=== PATIENT | female | born 1955 | race African-American/Black ===

== ENCOUNTER 2017-04-16 03:22 | Emergency (ER) | payer OTHER ==
[~2017-04-16] VITALS: Ht 175.3 cm; Wt 131.5 kg
[2017-04-16 03:59] VITALS: BP 162/90
[2017-04-16 07:41] LABS: Urine WBC None Seen /hpf (0 - 5)
[2017-04-16 08:01] LABS: Urine Bacteria NONE SEEN /hpf (None Seen); Urine Blood TRACE /uL (Negative); Urine Hyaline Cast FEW /lpf (0 - 2); Urine Mucus FEW (None Seen); Urine Specific Gravity 1.025 (1.001-1.035)
== END 2017-04-16 07:42 | disposition left against medical advice (07) ==
LOC: ER 03:24
DX: R11.2 Nausea with vomiting, unspecified (principal); R10.9 Unspecified abdominal pain; Z53.21 Procedure and treatment not carried out due to patient leaving prior to being seen by health care provider
CPT/HCPCS: 81001; 93005

== ENCOUNTER 2023-08-19 11:44 | Inpatient (IN) | payer MEDICARE, MEDICAID ==
[~2023-08-19] VITALS: Ht 157.5 cm; Wt 125.4 kg
[2023-08-19] VITALS (41 sets, daily range): BP systolic 80–132; BP diastolic 38–84; PULSE 88–105; RESP 15–23; TEMP 63.1–100.9; O2SAT 93–100
[~2023-08-19 11:44] MED LIST: LEVO750T40 PO
[2023-08-19] MEDS: EPINEPHrine HCL 1 MG/10 ML SYRG ONE (11:52)
[2023-08-19] MEDS: EPINEPHrine HCL 250 ML IV ONE (11:54)
[2023-08-19] MEDS: NOREPINEPHRINE 8 MG/250ML KIT 250 ML IV ONE (12:08)
[2023-08-19] MEDS: EPINEPHrine HCL 250 ML IV SCH (12:15)
[2023-08-19 12:33] LABS: Chloride 89 mmol/L (98-107); Potassium 4.3 mmol/L (3.5-5.1); Sodium 137 mmol/L (136-145)
[2023-08-19 12:34] LABS: Anion Gap 15 (5-15); Calcium 9.3 mg/dL (8.7-10.4); Carbon Dioxide 33 mmol/L (20-30)
[2023-08-19 12:35] LABS: White Blood Cell 9.7 10^3/uL (4.4-10.8)
[2023-08-19 12:37] LABS: Hematocrit 34.7 % (36.0-46.0); Hemoglobin 10.9 g/dL (12.2-16.2); Mean Corpuscular Hemoglobin 29.6 pg (28.0-32.0); Mean Corpuscular Hgb Conc. 31.3 g/dL (32.0-36.0); Mean Corpuscular Volume 94.5 fL (80.0-100.0); Red Blood Cells 3.67 10^6/uL (4.0-5.20); Red Cell Distribution Width 15.4 % (11.8-14.3)
[2023-08-19 12:39] LABS: BUN/Creatinine Ratio 45.9 (10.0-20.0); Blood Urea Nitrogen 45 mg/dL (9-23); Glucose 400 mg/dL (74-106)
[2023-08-19 12:41] LABS: Basophils % (manual) 0 (0.0-2.0); Blast Cells 0; Eosinophils % (manual) 0 (0-7); Metamyelocytes % 0; Myelocytes % 0; Promyelocytes % 0; Reactive Lymphocytes 0
[2023-08-19] MEDS: NOREPINEPHRINE 8 MG/250ML KIT 250 ML IV SCH (12:52)
[2023-08-19] MEDS: PIPERACILLIN-TAZOB 3.375GM 100 ML IV ONE (12:58)
[2023-08-19] MEDS: FUROSEMIDE 20 MG/2 ML VIAL IV ONE (12:59)
[2023-08-19 13:10] LABS: Band Neutrophils % (manual) 4; Lymphocytes % (manual) 21 (10.0-50.0); Monocytes % (manual) 5 (0-12)
[2023-08-19 13:11] LABS: Anisocytosis Slight; Hypochromia Slight; Platelet Estimate Adequate
[2023-08-19 14:10] LABS: Base Excess 10.9 mmol/L (-2.0-2.0)
[2023-08-19] MEDS: AZITHROMYCIN 500MG/ 250ML 250 ML IV ONE (14:38)
[2023-08-19] MEDS ORDERED: ONDANSETRON HCL 4 MG/2 ML VIAL IV PRN (15:00)
[2023-08-19] MEDS ORDERED: HYDROcodone-ACET 5/325MG TAB PO PRN (15:00)
[2023-08-19] MEDS ORDERED: DOCUSATE SOD 100 MG CAP PO PRN (15:00)
[2023-08-19] MEDS: MIDAZOLAM DRIP 50 mg/50mL 50 ML IV ONE (15:07)
[2023-08-19] MEDS: MIDAZOLAM DRIP 50 mg/50mL 50 ML IV SCH (15:09)
[2023-08-19 15:54] LABS: Urine Bacteria FEW /hpf (None Seen); Urine Blood 2+ /uL (Negative); Urine Budding Yeast OCCASIONAL /hpf (None Seen); Urine Clarity Turbid (Clear); Urine Color Yellow (Yellow); Urine Protein, UAD 2+ (Negative); Urine Specific Gravity 1.014 (1.001-1.035); Urine Urobilinogen Normal (Negative); Urine WBC 25 /hpf (0 - 5); Urine pH 5.5 (5.0-9.0)
[2023-08-19] MEDS ORDERED: VANCOMYCIN PER PHARMACY 0 MG IV SCH (16:15)
[2023-08-19] MEDS: VANCOMYCIN 1GM/200ML 200 ML IV ONE (18:09)
[2023-08-19] MEDS: ENOXAPARIN SOD 120 MG/0.8 ML SYRINGE SC SCH (18:42)
[2023-08-19] MEDS ORDERED: AMLO1TAB22 PO (19:09)
[2023-08-19] MEDS ORDERED: POTA-215 PO (19:09)
[2023-08-19] MEDS ORDERED: GLIP10TA9 PO (19:09)
[2023-08-19] MEDS ORDERED: AMIO200T33 PO (19:09)
[2023-08-19] MEDS ORDERED: METO25TA5 PO (19:09)
[2023-08-19] MEDS ORDERED: HYDR25TA4 PO (19:09)
[2023-08-19] MEDS ORDERED: INSU1INJ19 SC (19:09)
[2023-08-19] MEDS: ACETAMINOPHEN 325 MG TAB PO PRN (21:49)
[2023-08-19] MEDS: PIPERACILLIN-TAZOB 3.375GM 100 ML IV SCH (21:49)
[2023-08-19] MEDS: SODIUM CHLOR 0.9% PF (SALINE LOCK) 10ML VIAL/SYR IV SCH (22:09)
[2023-08-20] VITALS (94 sets, daily range): BP systolic 86–132; BP diastolic 45–107; PULSE 88–106; RESP 13–33; TEMP 97.3–100.9; O2SAT 94–100
[2023-08-20 02:02] LABS: Basophils # (auto) 0 10 ^3/uL (0-0.2); Basophils % (auto) 0.1 % (0.0-2.0); Eosinophils # (auto) 0 10 ^3/uL (0-0.8); Hematocrit 36.9 % (36.0-46.0); Hemoglobin 11.7 g/dL (12.2-16.2); Lymphocytes # (auto) 0.5 10 ^3/uL (0.4-5.4); Lymphocytes % (auto) 2.3 % (10.0-50.0); Mean Corpuscular Hgb Conc. 31.9 g/dL (32.0-36.0); Monocytes # (auto) 0.9 10 ^3/uL (0-1.3); Monocytes % (auto) 3.9 % (0.0-12.0); Neutrophils # (auto) 21.5 10 ^3/uL (1.6-8.6); Neutrophils % (auto) 93.7 % (37.0-80.0); Nucleated Red Blood Cells % 0.2 %; Red Blood Cells 4.05 10^6/uL (4.0-5.20); Red Cell Distribution Width 15.2 % (11.8-14.3)
[2023-08-20 02:10] LABS: Chloride 87 mmol/L (98-107); Potassium 3.6 mmol/L (3.5-5.1); Sodium 133 mmol/L (136-145)
[2023-08-20 02:11] LABS: Anion Gap 15 (5-15); Calcium 8.8 mg/dL (8.7-10.4); Carbon Dioxide 31 mmol/L (20-30)
[2023-08-20 02:16] LABS: BUN/Creatinine Ratio 31.3 (10.0-20.0); Blood Urea Nitrogen 51 mg/dL (9-23); Magnesium 2.1 mg/dL (1.6-2.6)
[2023-08-20 02:17] LABS: Glucose 475 mg/dL (74-106)
[2023-08-20 02:18] LABS: Alanine Aminotransferase 94 U/L (7-40); Aspartate Aminotransferase 44 U/L (13-40)
[2023-08-20 02:28] LABS: Triglycerides 176 mg/dL (< 150)
[2023-08-20 02:29] LABS: LDL Cholesterol 111 mg/dL (< 100)
[2023-08-20 02:30] LABS: Cholesterol 175 mg/dL (< 200); HDL Cholesterol 27 mg/dL (40-59)
[2023-08-20] MEDS ORDERED: DEXTROSE (50%) 50ML SYRG IV PRN (03:00)
[2023-08-20] MEDS: InsuLIN REG 1unit/0.01ml Soln (100units/ml) SC SCH ×2 (03:03→21:54)
[2023-08-20] MEDS: VANCOMYCIN 1GM/200ML 200 ML IV SCH (03:12)
[2023-08-20] MEDS: FUROSEMIDE 20 MG/2 ML VIAL IV SCH ×2 (05:29→16:57)
[2023-08-20] MEDS: ACCU-CHEK COMFORT CURVE STRIP VI SCH (06:32)
[2023-08-20] MEDS: PANTOPRAZOLE 40 MG/10 ML VIAL INJ IV SCH (07:14)
[2023-08-20 07:28] LABS: Base Excess 9.4 mmol/L (-2.0-2.0)
[2023-08-20 10:45] LABS: Base Excess 9.5 mmol/L (-2.0-2.0)
[2023-08-20] MEDS: INSULIN LANTUS (GLARGINE) 1 /0.01ml (100units/ml) SC SCH (11:25)
[2023-08-20] MEDS: SODIUM CHLORIDE 0.9% 1,000 ML IV SCH (11:25)
[2023-08-20 12:04] LABS: INR 2.2 (0.9-1.15); Partial Thromboplastin Time 34.7 SEC (24.5-34.5)
[2023-08-20] MEDS: LIDOCAINE 1% (LOCAL ANESTH.) PF 5ml SDV ID ONE (13:25)
[2023-08-20] MEDS: SODIUM CHLOR 0.9% PF (SALINE LOCK) 10ML VIAL/SYR IV SCH (21:42)
[2023-08-20] MEDS: HYDROCORTISONE SOD SUCC 100 MG/2ML INJ VIAL IV SCH (22:15)
[2023-08-21] VITALS (54 sets, daily range): BP systolic 105–140; BP diastolic 46–78; PULSE 86–109; RESP 10–26; TEMP 96.6–98.8; O2SAT 88–100
[2023-08-21 05:07] LABS: Alanine Aminotransferase 75 U/L (7-40); Albumin 3.2 g/dL (3.2-4.8); Alkaline Phosphatase 91 U/L (46-116); Anion Gap 10 (5-15); Aspartate Aminotransferase 117 U/L (13-40); BUN/Creatinine Ratio 36.7 (10.0-20.0); Bilirubin, Total 2.2 mg/dL (0.2-1.0); Blood Urea Nitrogen 61 mg/dL (9-23); Calcium 9.4 mg/dL (8.7-10.4); Carbon Dioxide 37 mmol/L (20-30); Chloride 92 mmol/L (98-107); Glucose 147 mg/dL (74-106); Potassium 2.6 mmol/L (3.5-5.1); Sodium 139 mmol/L (136-145); Total Protein 5.5 g/dL (5.7-8.2)
[2023-08-21 05:09] LABS: Basophils # (auto) 0 10 ^3/uL (0-0.2); Basophils % (auto) 0.1 % (0.0-2.0); Eosinophils # (auto) 0 10 ^3/uL (0-0.8); Eosinophils % (auto) 0.1 % (0.0-7.0); Hematocrit 32.1 % (36.0-46.0); Hemoglobin 10.5 g/dL (12.2-16.2); Lymphocytes # (auto) 0.7 10 ^3/uL (0.4-5.4); Lymphocytes % (auto) 3.8 % (10.0-50.0); Mean Corpuscular Hemoglobin 29.3 pg (28.0-32.0); Mean Corpuscular Hgb Conc. 32.8 g/dL (32.0-36.0); Mean Corpuscular Volume 89.4 fL (80.0-100.0); Monocytes # (auto) 0.6 10 ^3/uL (0-1.3); Monocytes % (auto) 3.4 % (0.0-12.0); Neutrophils # (auto) 17.3 10 ^3/uL (1.6-8.6); Neutrophils % (auto) 92.6 % (37.0-80.0); Red Blood Cells 3.59 10^6/uL (4.0-5.20); White Blood Cell 18.8 10^3/uL (4.4-10.8)
[2023-08-21] MEDS: POTASSIUM CHL 20MEQ/100ML 200 ML IV ONE (06:24)
[2023-08-21] MEDS: POTASSIUM CHL 20MEQ/100ML 100 ML IV SCH ×2 (06:39→13:57)
[2023-08-21 07:11] LABS: Base Excess 12.7 mmol/L (-2.0-2.0)
[2023-08-21 10:23] LABS: Base Excess 9.5 mmol/L (-2.0-2.0)
[2023-08-21] MEDS: MAGNESIUM SULFATE 1GM/100ML 100 ML IV SCH (13:57)
[2023-08-22] VITALS (72 sets, daily range): BP systolic 111–141; BP diastolic 46–63; PULSE 82–93; RESP 12–41; TEMP 98–98.8; O2SAT 89–100
[2023-08-22 04:08] LABS: Basophils # (auto) 0 10 ^3/uL (0-0.2); Basophils % (auto) 0.2 % (0.0-2.0); Eosinophils # (auto) 0.1 10 ^3/uL (0-0.8); Eosinophils % (auto) 0.4 % (0.0-7.0); Hematocrit 26.4 % (36.0-46.0); Hemoglobin 8.5 g/dL (12.2-16.2); Lymphocytes # (auto) 0.7 10 ^3/uL (0.4-5.4); Lymphocytes % (auto) 4.8 % (10.0-50.0); Mean Corpuscular Hemoglobin 29.2 pg (28.0-32.0); Mean Corpuscular Hgb Conc. 32.1 g/dL (32.0-36.0); Mean Corpuscular Volume 91.1 fL (80.0-100.0); Monocytes # (auto) 0.4 10 ^3/uL (0-1.3); Monocytes % (auto) 2.8 % (0.0-12.0); Neutrophils # (auto) 13.6 10 ^3/uL (1.6-8.6); Neutrophils % (auto) 91.8 % (37.0-80.0); Nucleated Red Blood Cells % 0.2 %; Red Cell Distribution Width 15.3 % (11.8-14.3); White Blood Cell 14.7 10^3/uL (4.4-10.8)
[2023-08-22 04:28] LABS: Alanine Aminotransferase 53 U/L (7-40); Albumin 2.8 g/dL (3.2-4.8); Alkaline Phosphatase 80 U/L (46-116); Anion Gap 7 (5-15); Aspartate Aminotransferase 87 U/L (13-40); BUN/Creatinine Ratio 37.9 (10.0-20.0); Blood Urea Nitrogen 53 mg/dL (9-23); Carbon Dioxide 39 mmol/L (20-30); Chloride 96 mmol/L (98-107); Glucose 269 mg/dL (74-106); Magnesium 2.2 mg/dL (1.6-2.6); Potassium 2.7 mmol/L (3.5-5.1); Sodium 142 mmol/L (136-145)
[2023-08-22 04:29] LABS: Bilirubin, Total 1.7 mg/dL (0.2-1.0); Total Protein 4.9 g/dL (5.7-8.2)
[2023-08-22] MEDS: POTASSIUM CHL 20MEQ/100ML 100 ML IV SCH ×2 (05:31→13:38)
[2023-08-22 07:22] LABS: Base Excess 9.6 mmol/L (-2.0-2.0)
[2023-08-22] MEDS: ENOXAPARIN SOD 40 MG/0.4 ML SYRINGE SC SCH (07:42)
[2023-08-22] MEDS ORDERED: HYDR-4798 PO (09:17)
[2023-08-22] MEDS ORDERED: PIO30T PO (09:17)
[2023-08-22] MEDS ORDERED: CLOTCRE3 EX (09:17)
[2023-08-22] MEDS ORDERED: IBUP-1456 PO (09:17)
[2023-08-22] MEDS ORDERED: METH-552 PO (09:17)
[2023-08-22] MEDS: VANCOMYCIN 1GM/200ML 200 ML IV ONE (10:42)
[2023-08-22] MEDS: Glucerna 1.2 Cal 1Liter BOTTLE GT SCH (11:58)
[2023-08-23] VITALS (71 sets, daily range): BP systolic 109–151; BP diastolic 45–88; PULSE 79–92; RESP 13–34; TEMP 98–98.8; O2SAT 87–95
[2023-08-23 05:01] LABS: Alanine Aminotransferase 45 U/L (7-40); Alkaline Phosphatase 79 U/L (46-116); Anion Gap 10 (5-15); Aspartate Aminotransferase 47 U/L (13-40); BUN/Creatinine Ratio 36.3 (10.0-20.0); Calcium 8.9 mg/dL (8.7-10.4); Carbon Dioxide 36 mmol/L (20-30); Chloride 100 mmol/L (98-107); Magnesium 2.3 mg/dL (1.6-2.6); Potassium 3.8 mmol/L (3.5-5.1); Sodium 146 mmol/L (136-145)
[2023-08-23 05:02] LABS: Albumin 3.1 g/dL (3.2-4.8); Bilirubin, Total 1.4 mg/dL (0.2-1.0); Total Protein 5.2 g/dL (5.7-8.2)
[2023-08-23 05:12] LABS: Basophils # (auto) 0 10 ^3/uL (0-0.2); Basophils % (auto) 0.2 % (0.0-2.0); Eosinophils # (auto) 0 10 ^3/uL (0-0.8); Eosinophils % (auto) 0.4 % (0.0-7.0); Hematocrit 26.9 % (36.0-46.0); Hemoglobin 8.5 g/dL (12.2-16.2); Lymphocytes # (auto) 0.4 10 ^3/uL (0.4-5.4); Lymphocytes % (auto) 4.4 % (10.0-50.0); Mean Corpuscular Hemoglobin 29.6 pg (28.0-32.0); Mean Corpuscular Hgb Conc. 31.5 g/dL (32.0-36.0); Mean Corpuscular Volume 94.2 fL (80.0-100.0); Monocytes # (auto) 0.4 10 ^3/uL (0-1.3); Monocytes % (auto) 3.8 % (0.0-12.0); Neutrophils # (auto) 8.5 10 ^3/uL (1.6-8.6); Neutrophils % (auto) 91.2 % (37.0-80.0); Nucleated Red Blood Cells % 0.2 %; Red Blood Cells 2.86 10^6/uL (4.0-5.20); Red Cell Distribution Width 16.3 % (11.8-14.3); White Blood Cell 9.3 10^3/uL (4.4-10.8)
[2023-08-23 05:43] LABS: Blood Urea Nitrogen 41 mg/dL (9-23); Glucose 423 mg/dL (74-106)
[2023-08-23] MEDS ORDERED: EPINEPHrine HCL 250 ML IV SCH (06:00)
[2023-08-23] MEDS ORDERED: DEXTROSE (50%) 50ML SYRG IV PRN (06:45)
[2023-08-23 07:39] LABS: Base Excess 6.5 mmol/L (-2.0-2.0)
[2023-08-23] MEDS: ACCU-CHEK COMFORT CURVE STRIP VI SCH (08:00)
[2023-08-23] MEDS: InsuLIN REG 1unit/0.01ml Soln (100units/ml) SC SCH (08:00)
[2023-08-23] MEDS: VANCOMYCIN 1GM/200ML 200 ML IV SCH (10:18)
[2023-08-23] MEDS: INSULIN LANTUS (GLARGINE) 1 /0.01ml (100units/ml) SC ONE (14:04)
[2023-08-23] MEDS: FREE WATER GT SCH (18:00)
[2023-08-24] VITALS (57 sets, daily range): BP systolic 124–154; BP diastolic 49–68; PULSE 72–91; RESP 9–28; TEMP 98.2–99.5; O2SAT 91–99
[2023-08-24 08:02] LABS: Basophils # (auto) 0 10 ^3/uL (0-0.2); Basophils % (auto) 0.3 % (0.0-2.0); Eosinophils # (auto) 0.1 10 ^3/uL (0-0.8); Eosinophils % (auto) 1.2 % (0.0-7.0); Hematocrit 26.1 % (36.0-46.0); Hemoglobin 8.3 g/dL (12.2-16.2); Lymphocytes # (auto) 0.6 10 ^3/uL (0.4-5.4); Lymphocytes % (auto) 6.6 % (10.0-50.0); Mean Corpuscular Hemoglobin 29.3 pg (28.0-32.0); Mean Corpuscular Hgb Conc. 31.9 g/dL (32.0-36.0); Mean Corpuscular Volume 92.1 fL (80.0-100.0); Monocytes # (auto) 0.4 10 ^3/uL (0-1.3); Monocytes % (auto) 4.4 % (0.0-12.0); Neutrophils % (auto) 87.5 % (37.0-80.0); Nucleated Red Blood Cells % 0.1 %; Red Blood Cells 2.84 10^6/uL (4.0-5.20); Red Cell Distribution Width 16.1 % (11.8-14.3); White Blood Cell 9.2 10^3/uL (4.4-10.8)
[2023-08-24 08:08] LABS: Base Excess 18.3 mmol/L (-2.0-2.0)
[2023-08-24 08:18] LABS: Alanine Aminotransferase 39 U/L (7-40); Alkaline Phosphatase 87 U/L (46-116); Aspartate Aminotransferase 48 U/L (13-40); BUN/Creatinine Ratio 45.5 (10.0-20.0); Bilirubin, Total 1.2 mg/dL (0.2-1.0); Blood Urea Nitrogen 40 mg/dL (9-23); Calcium 9.3 mg/dL (8.7-10.4); Chloride 106 mmol/L (98-107); Glucose 238 mg/dL (74-106); Potassium 3.2 mmol/L (3.5-5.1); Total Protein 4.9 g/dL (5.7-8.2)
[2023-08-24 08:29] LABS: Anion Gap 6.99999 (5-15); Sodium 153 mmol/L (136-145)
[2023-08-24 08:30] LABS: Carbon Dioxide > 40 mmol/L (20-30)
[2023-08-24] MEDS: INSULIN LANTUS (GLARGINE) 1 /0.01ml (100units/ml) SC SCH (10:00)
[2023-08-24] MEDS: POTASSIUM CHL 20MEQ/100ML 100 ML IV SCH (11:45)
[2023-08-24] MEDS: FREE WATER GT SCH (14:00)
[2023-08-25] VITALS (36 sets, daily range): BP systolic 114–148; BP diastolic 55–72; PULSE 57–78; RESP 17–27; TEMP 97.7–99.3; O2SAT 93–100
[2023-08-25 04:06] LABS: Basophils # (auto) 0 10 ^3/uL (0-0.2); Basophils % (auto) 0.2 % (0.0-2.0); Eosinophils # (auto) 0.1 10 ^3/uL (0-0.8); Eosinophils % (auto) 1.1 % (0.0-7.0); Hematocrit 26.4 % (36.0-46.0); Hemoglobin 8.6 g/dL (12.2-16.2); Lymphocytes # (auto) 0.8 10 ^3/uL (0.4-5.4); Lymphocytes % (auto) 10.2 % (10.0-50.0); Mean Corpuscular Hemoglobin 29.6 pg (28.0-32.0); Mean Corpuscular Hgb Conc. 32.6 g/dL (32.0-36.0); Mean Corpuscular Volume 90.6 fL (80.0-100.0); Monocytes # (auto) 0.4 10 ^3/uL (0-1.3); Monocytes % (auto) 4.9 % (0.0-12.0); Neutrophils # (auto) 6.9 10 ^3/uL (1.6-8.6); Neutrophils % (auto) 83.6 % (37.0-80.0); Nucleated Red Blood Cells % 0.1 %; Red Blood Cells 2.91 10^6/uL (4.0-5.20); Red Cell Distribution Width 15.9 % (11.8-14.3); White Blood Cell 8.3 10^3/uL (4.4-10.8)
[2023-08-25 04:19] LABS: Alanine Aminotransferase 46 U/L (7-40); Alkaline Phosphatase 95 U/L (46-116); Anion Gap 6 (5-15); Aspartate Aminotransferase 76 U/L (13-40); BUN/Creatinine Ratio 37.5 (10.0-20.0); Bilirubin, Total 1.8 mg/dL (0.2-1.0); Calcium 9.1 mg/dL (8.7-10.4); Carbon Dioxide 40 mmol/L (20-30); Chloride 107 mmol/L (98-107); GFR African American 92 mL/min; GFR Non-African American 76 mL/min; Glucose 161 mg/dL (74-106); Phosphorus 2.4 mg/dL (2.4-5.1); Potassium 3.1 mmol/L (3.5-5.1); Sodium 153 mmol/L (136-145); Total Protein 5.3 g/dL (5.7-8.2)
[2023-08-25 04:22] LABS: Blood Urea Nitrogen 30 mg/dL (9-23)
[2023-08-25] MEDS: POTASSIUM CHL 20MEQ/100ML 100 ML IV ONE (07:30)
[2023-08-25 08:16] LABS: Base Excess 14.5 mmol/L (-2.0-2.0)
[2023-08-25] MEDS: SOD CHL 0.45% 1,000 ML IV ONE (14:44)
[2023-08-25 15:55] LABS: Chloride 106 mmol/L (98-107); Potassium 2.6 mmol/L (3.5-5.1)
[2023-08-25 15:56] LABS: Anion Gap 4 (5-15); Calcium 7.8 mg/dL (8.7-10.4); Carbon Dioxide 36 mmol/L (20-30)
[2023-08-25 16:01] LABS: BUN/Creatinine Ratio 42.4 (10.0-20.0); Blood Urea Nitrogen 28 mg/dL (9-23); Glucose 228 mg/dL (74-106); Sodium 146 mmol/L (136-145)
[2023-08-25] MEDS: POTASSIUM EFFERVESENT TAB 25 MEQ GT ONE (21:13)
[2023-08-26] VITALS (40 sets, daily range): BP systolic 114–155; BP diastolic 47–81; PULSE 56–81; RESP 9–25; TEMP 97–98.8; O2SAT 94–100
[2023-08-26 00:52] LABS: Chloride 109 mmol/L (98-107); Potassium 3.3 mmol/L (3.5-5.1)
[2023-08-26 00:53] LABS: Calcium 8.7 mg/dL (8.7-10.4)
[2023-08-26 00:58] LABS: BUN/Creatinine Ratio 37.1 (10.0-20.0); Blood Urea Nitrogen 26 mg/dL (9-23); Glucose 178 mg/dL (74-106)
[2023-08-26 01:03] LABS: Anion Gap 4.99999 (5-15); Sodium 154 mmol/L (136-145)
[2023-08-26 01:04] LABS: Carbon Dioxide > 40 mmol/L (20-30)
[2023-08-26 03:49] LABS: Basophils # (auto) 0 10 ^3/uL (0-0.2); Eosinophils # (auto) 0.1 10 ^3/uL (0-0.8); Eosinophils % (auto) 1.9 % (0.0-7.0); Hemoglobin 8.3 g/dL (12.2-16.2); Lymphocytes # (auto) 0.7 10 ^3/uL (0.4-5.4); Monocytes # (auto) 0.2 10 ^3/uL (0-1.3); Nucleated Red Blood Cells % 0.2 %; Red Blood Cells 2.87 10^6/uL (4.0-5.20)
[2023-08-26 03:56] LABS: Basophils % (auto) 0.3 % (0.0-2.0); Hematocrit 25.9 % (36.0-46.0); Lymphocytes % (auto) 9.7 % (10.0-50.0); Mean Corpuscular Hemoglobin 29.1 pg (28.0-32.0); Mean Corpuscular Hgb Conc. 32.2 g/dL (32.0-36.0); Mean Corpuscular Volume 90.3 fL (80.0-100.0); Neutrophils # (auto) 6.4 10 ^3/uL (1.6-8.6); Neutrophils % (auto) 85.1 % (37.0-80.0); Red Cell Distribution Width 16.2 % (11.8-14.3); White Blood Cell 7.5 10^3/uL (4.4-10.8)
[2023-08-26 04:02] LABS: Chloride 108 mmol/L (98-107); Sodium 152 mmol/L (136-145)
[2023-08-26 04:03] LABS: Anion Gap 5 (5-15); Carbon Dioxide 39 mmol/L (20-30)
[2023-08-26 04:04] LABS: Calcium 8.8 mg/dL (8.7-10.4)
[2023-08-26 04:08] LABS: Blood Urea Nitrogen 28 mg/dL (9-23); Glucose 191 mg/dL (74-106)
[2023-08-26] MEDS: Glucerna 1.2 Cal 1Liter BOTTLE GT SCH (05:49)
[2023-08-26] MEDS: POTASSIUM CHL 20MEQ/100ML 100 ML IV SCH (06:38)
[2023-08-26 07:13] LABS: Base Excess 12.9 mmol/L (-2.0-2.0)
[2023-08-26] MEDS ORDERED: DEXTROSE (50%) 50ML SYRG IV PRN (10:30)
[2023-08-26] MEDS: FLORASTOR (S. BOULARDII) 250 MG CAP PO SCH (10:38)
[2023-08-26] MEDS: ACCU-CHEK COMFORT CURVE STRIP VI SCH (11:06)
[2023-08-26] MEDS: InsuLIN REG 1unit/0.01ml Soln (100units/ml) SC SCH (11:06)
[2023-08-27] VITALS (38 sets, daily range): BP systolic 114–152; BP diastolic 57–98; PULSE 62–84; RESP 9–21; TEMP 97.5–99; O2SAT 94–100
[2023-08-27 04:05] LABS: Basophils # (auto) 0 10 ^3/uL (0-0.2); Basophils % (auto) 0.3 % (0.0-2.0); Eosinophils # (auto) 0.1 10 ^3/uL (0-0.8); Eosinophils % (auto) 1.9 % (0.0-7.0); Hematocrit 25.3 % (36.0-46.0); Lymphocytes # (auto) 0.7 10 ^3/uL (0.4-5.4); Lymphocytes % (auto) 12.5 % (10.0-50.0); Mean Corpuscular Hemoglobin 28.6 pg (28.0-32.0); Mean Corpuscular Hgb Conc. 31.7 g/dL (32.0-36.0); Mean Corpuscular Volume 90.2 fL (80.0-100.0); Monocytes # (auto) 0.2 10 ^3/uL (0-1.3); Neutrophils # (auto) 4.6 10 ^3/uL (1.6-8.6); Neutrophils % (auto) 82.3 % (37.0-80.0); Nucleated Red Blood Cells % 0.4 %; Red Blood Cells 2.81 10^6/uL (4.0-5.20); Red Cell Distribution Width 16.3 % (11.8-14.3); White Blood Cell 5.6 10^3/uL (4.4-10.8)
[2023-08-27 04:31] LABS: Calcium 8.3 mg/dL (8.7-10.4); Chloride 111 mmol/L (98-107); Potassium 2.8 mmol/L (3.5-5.1); Sodium 153 mmol/L (136-145)
[2023-08-27 04:32] LABS: Anion Gap 8 (5-15); Carbon Dioxide 34 mmol/L (20-30)
[2023-08-27 04:37] LABS: Blood Urea Nitrogen 18 mg/dL (9-23); Glucose 147 mg/dL (74-106)
[2023-08-27] MEDS: POTASSIUM CHL 20MEQ/100ML 100 ML IV SCH (06:07)
[2023-08-27 07:05] LABS: Base Excess 8.3 mmol/L (-2.0-2.0)
[2023-08-27] MEDS: POTASSIUM CHLORIDE 40 MEQ in D5W 5% 1,000 ML IV SCH (08:15)
[2023-08-27] MEDS: INSULIN LANTUS (GLARGINE) 1 /0.01ml (100units/ml) SC SCH (10:00)
[2023-08-27] MEDS: VANCOMYCIN 1GM/200ML 200 ML IV ONE (13:44)
[2023-08-28] VITALS (34 sets, daily range): BP systolic 107–161; BP diastolic 57–93; PULSE 59–84; RESP 14–23; TEMP 97.5–99; O2SAT 97–100
[2023-08-28 03:29] LABS: Basophils # (auto) 0 10 ^3/uL (0-0.2); Basophils % (auto) 0.3 % (0.0-2.0); Eosinophils # (auto) 0.1 10 ^3/uL (0-0.8); Eosinophils % (auto) 1.6 % (0.0-7.0); Hematocrit 24.3 % (36.0-46.0); Hemoglobin 7.8 g/dL (12.2-16.2); Lymphocytes # (auto) 0.6 10 ^3/uL (0.4-5.4); Lymphocytes % (auto) 10.1 % (10.0-50.0); Mean Corpuscular Hgb Conc. 32.2 g/dL (32.0-36.0); Mean Corpuscular Volume 90.1 fL (80.0-100.0); Monocytes # (auto) 0.1 10 ^3/uL (0-1.3); Monocytes % (auto) 2.7 % (0.0-12.0); Neutrophils # (auto) 4.8 10 ^3/uL (1.6-8.6); Neutrophils % (auto) 85.3 % (37.0-80.0); Nucleated Red Blood Cells % 0.2 %; White Blood Cell 5.6 10^3/uL (4.4-10.8)
[2023-08-28 03:43] LABS: Anion Gap 7 (5-15); Carbon Dioxide 30 mmol/L (20-30); Chloride 110 mmol/L (98-107); Potassium 3.1 mmol/L (3.5-5.1)
[2023-08-28 03:49] LABS: BUN/Creatinine Ratio 21.4 (10.0-20.0); Blood Urea Nitrogen 12 mg/dL (9-23); Glucose 224 mg/dL (74-106); Magnesium 1.8 mg/dL (1.6-2.6)
[2023-08-28 03:55] LABS: Sodium 147 mmol/L (136-145)
[2023-08-28] MEDS: POTASSIUM CHL 20MEQ/100ML 100 ML IV ONE (05:35)
[2023-08-28 07:46] LABS: Base Excess 5.3 mmol/L (-2.0-2.0)
[2023-08-28] MEDS: VANCOMYCIN 1GM/200ML 200 ML IV ONE (09:21)
[2023-08-28] MEDS: POTASSIUM CHL 20MEQ/100ML 100 ML IV SCH (12:29)
== END 2023-08-28 19:55 | DRG 870 ==
LOC: EDBD 11:44 → ER 11:44 → EDUNIT# 11:44 → TELE 14:53 → ICU WEST 16:11 → UNDODISIN 08-28 19:59
PROVIDERS: ADMIT Internal Medicine; ATTEND Internal Medicine
PROC: 5A1955Z Respiratory Ventilation, Greater than 96 Consecutive Hours (ICD-10-PCS; principal; 2023-08-19)
PROC: 0BH17EZ Insertion of Endotracheal Airway into Trachea, Via Natural or Artificial Opening (ICD-10-PCS; 2023-08-19)
PROC: 5A12012 Performance of Cardiac Output, Single, Manual (ICD-10-PCS; 2023-08-19)
PROC: 06HY33Z Insertion of Infusion Device into Lower Vein, Percutaneous Approach (ICD-10-PCS; 2023-08-19)
PROC: 02HV33Z Insertion of Infusion Device into Superior Vena Cava, Percutaneous Approach (ICD-10-PCS; 2023-08-20)
PROC: B548ZZA Ultrasonography of Superior Vena Cava, Guidance (ICD-10-PCS; 2023-08-20)
DX: A41.9 Sepsis, unspecified organism (principal); I50.33 Acute on chronic diastolic (congestive) heart failure; J15.212 Pneumonia due to Methicillin resistant Staphylococcus aureus; I21.A1 Myocardial infarction type 2; G92.8 Other toxic encephalopathy; I46.9 Cardiac arrest, cause unspecified; R65.21 Severe sepsis with septic shock; K72.00 Acute and subacute hepatic failure without coma; J96.21 Acute and chronic respiratory failure with hypoxia; J96.22 Acute and chronic respiratory failure with hypercapnia; Z68.43 Body mass index [BMI] 50.0-59.9, adult; G93.1 Anoxic brain damage, not elsewhere classified; E87.1 Hypo-osmolality and hyponatremia; N17.9 Acute kidney failure, unspecified; I11.0 Hypertensive heart disease with heart failure; E04.9 Nontoxic goiter, unspecified; E66.01 Morbid (severe) obesity due to excess calories; I48.0 Paroxysmal atrial fibrillation; I49.3 Ventricular premature depolarization; E87.6 Hypokalemia; F17.200 Nicotine dependence, unspecified, uncomplicated; D69.6 Thrombocytopenia, unspecified; E11.649 Type 2 diabetes mellitus with hypoglycemia without coma
CPT/HCPCS: 31500; 36415; 36569; 36600; 70450; 70551; 71045; 71250; 76856; 76937; 80048; 80053; 80061; 80069; 80202; 81001; 82805; 82962; 83036; 83605; 83735; 83880; 84443; 84450; 84460; 84484; 85007; 85025; 85027; 85610; 85730; 87040; 87070; 87077; 87081; 87086; 87186; 87205; 93005; 93306; 94002; 94003; 95819; 99291; G0378; J0171; J1815; J2470; J2543; J3480